=== PATIENT | male | born 1980 | race African-American/Black ===

== ENCOUNTER 2017-01-29 02:25 | Inpatient (IN) | payer OTHER ==
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
[2017-01-29] MEDS ORDERED: CEFAZOLIN 1 GM in DEXTROSE 5%-WATER - 50 ML IVPB ONE (02:36)
[2017-01-29] MEDS ORDERED: DIPHTH,PERTUSS(ACELL),TET 0.5 ML DISP.SYRIN IM ONE (02:36)
[2017-01-29 02:50] LABS: EOSINOPHIL 2.4 % (0-4.5); MCH 31.1 pg (25.7-33.7); MCHC 34.1 g/dl (32.0-35.9); MEAN CELL VOLUME 91.3 fl (80-96); MEAN PLT VOLUME 6.6 fl (7.5-11.1); NEUTROPHILS 51.8 % (42.8-82.8); PLATELET COUNT 317 K/MM3 (134-434); RDW 14.1 % (11.9-15.9); WHITE BLOOD COUNT 8.7 K/mm3 (4.0-10.0)
[2017-01-29 03:05] LABS: INR 0.97 (0.82-1.09); PROTHROMBIN TIME (PATIENT) 10.7 SEC (9.98-11.88)
[2017-01-29] MEDS ORDERED: CEFAZOLIN (PRE-DOCKED) 50 ML IVPB ONE (03:13)
[2017-01-29 03:15] LABS: ALBUMIN 4.2 g/dl (3.4-5.0); ALK PHOS 56 U/L (45-117); ANION GAP 11 (8-16); BILIRUBIN,TOTAL 0.4 mg/dL (0.2-1.0); CO2 27 mmol/L (21-32); CREATININE 1.3 mg/dL (0.7-1.3); GLUCOSE,RANDOM 115 mg/dL (74-106); SGOT/AST 17 U/L (15-37); SGPT/ALT 24 U/L (12-78); TOT PROT 7.9 g/dl (6.4-8.2)
[2017-01-29] MEDS ORDERED: SODIUM CHLORIDE 0.9% 500 ML INFUS.BAG IV ONE (03:29)
[2017-01-29] MEDS ORDERED: LIDOCAINE HCL 2% (20ML MULTI-DOSE VIAL) NR ONE (04:40)
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
[2017-01-29 08:58] VITALS: BMI 28.3
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
[2017-01-29] MEDS ORDERED: ACETAMINOPHEN 325 MG TABLET (FP) PO PRN (09:39)
[2017-01-29] MEDS ORDERED: oxyCODONE HCL 5 MG TABLET PO PRN (09:39)
[2017-01-29 11:23] LABS: MCH 31.5 pg (25.7-33.7); MCHC 34.3 g/dl (32.0-35.9); MEAN CELL VOLUME 91.8 fl (80-96); MEAN PLT VOLUME 6.4 fl (7.5-11.1); PLATELET COUNT 259 K/MM3 (134-434); RDW 13.8 % (11.9-15.9); WHITE BLOOD COUNT 10.5 K/mm3 (4.0-10.0)
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
[2017-01-29] MEDS: CEPHALEXIN MONOHYDRATE 500 MG CAPSULE (UD) PO SCH (18:25)
[2017-01-30] MEDS: CEPHALEXIN MONOHYDRATE 500 MG CAPSULE (UD) PO SCH ×3 (06:06→11:17)
[2017-01-30 09:22] VITALS: BP 143/60; PULSE 54; TEMP 98.1
--- NOTE | 2017-01-30 10:40 | EKG ---
Test Reason : Blood Pressure : / mmHG Vent. Rate : 083 BPM Atrial Rate : 083 BPM P-R Int : 176 ms QRS Dur : 094 ms QT Int : 352 ms P-R-T Axes : 064 089 015 degrees QTc Int : 413 ms NORMAL SINUS RHYTHM NORMAL ECG WHEN COMPARED WITH ECG OF 19-MAR-2013 20:18, RSR' PATTERN IN V1 IS NO LONGER PRESENT T WAVE INVERSION LESS EVIDENT IN INFERIOR LEADS T WAVE INVERSION NO LONGER EVIDENT IN ANTEROLATERAL LEADS Confirmed by RIN DEMPSEY MD ([id number]) on 01/30/2017 10:39:57 AM Referred By: Confirmed By:RIN DEMPSEY MD
== END 2017-01-30 11:21 | disposition home or self-care (01) | DRG 384 ==
LOC: JER 02:25 → JERBED 05:43 → J5S 07:03
PROVIDERS: ADMIT Internal Medicine; ATTEND Internal Medicine
PROC: 0HQJXZZ Repair Left Upper Leg Skin, External Approach (ICD-10-PCS; principal; 2017-01-29)
PROC: 0HQHXZZ Repair Right Upper Leg Skin, External Approach (ICD-10-PCS; 2017-01-29)
DX: S71.112A Laceration without foreign body, left thigh, initial encounter (principal); S71.111A Laceration without foreign body, right thigh, initial encounter; W26.9XXA Contact with unspecified sharp object(s), initial encounter; Y93.9 Activity, unspecified; Y92.9 Unspecified place or not applicable; I10 Essential (primary) hypertension; Z72.0 Tobacco use; F10.129 Alcohol abuse with intoxication, unspecified; Y90.6 Blood alcohol level of 120-199 mg/100 ml
CPT/HCPCS: 36415; 73706-TC-RT; 80053; 80307; 85025; 85027; 85610; 85730; 86850; 86900; 86901; 90715; 93005; 93010; 93971-TC; 97116-GP; 97161-GP; 99285-25

== ENCOUNTER 2017-06-26 13:42 | Emergency (ER) | payer OTHER ==
[2017-06-26 14:05] VITALS: BP 134/79; PULSE 67; TEMP 98.2; BMI 29.6
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
--- NOTE | 2017-06-26 15:36 | PDOC ---
History of Present Illness - General Chief Complaint: Laceration Stated Complaint: LT FINGER LACERATION Time Seen by Provider: 06/26/17 14:07 History Source: Patient Exam Limitations: No Limitations - History of Present Illness Initial Comments: 06/26/17 15:30 CHIEF COMPLAINT: Laceration to the tip of the left first finger HISTORY OF PRESENT ILLNESS: Patient is a 37-year-old male, presents to the ER with 1.0 cm laceration to the tip of the left first finger. Was at work, a sharp object cut the tip of the finger. No active bleeding, tetanus is UTD. Good range of motion to finger, no tendon or ligament involvement. 06/26/17 15:34 Timing/Duration: reports: just prior to arrival Severity: Yes: moderate Past History - Past Medical History Allergies/Adverse Reactions: Allergies Allergy/AdvReac Type Severity Reaction Status Date / Time No Known Allergies Allergy Verified 06/26/17 14:02 Home Medications: Ambulatory Orders No Home Medications 0 dose .ROUTE UTDICT 03/19/13 Aspirin [ASA -] 81 mg PO DAILY 06/26/17 Anemia: No Asthma: No Cancer: Yes (chest pain, sob) Cardiac Disorders: Yes (CARDIAC CATHX2) CVA: No COPD: No CHF: No Dementia: No Diabetes: No GI Disorders: No Disorders: No HTN: Yes (NON COMPLIANT W/HCTZ) Hypercholesterolemia: Yes Liver Disease: No Seizures: No Thyroid Disease: No - Surgical History Abdominal Surgery: No Appendectomy: No Cardiac Surgery: No Cholecystectomy: No Lung Surgery: No Neurologic Surgery: No Orthopedic Surgery: No - Immunization History Immunization Up to Date: No - Suicide/Smoking/Psychosocial Hx Smoking Status: Yes Smoking History: Current every day smoker Have you smoked in the past 12 months: Yes Number of Cigarettes Smoked Daily: 2 Cigars Per Day: 0 Information on smoking cessation initiated: No 'Breaking Loose' booklet given: 03/20/13 Hx Alcohol Use: Yes (social drinker) Drug/Substance Use Hx: Yes Substance Use Type: Marijuana Hx Substance Use Treatment: No Review of Systems - Review of Systems Constitutional: No: Symptoms Reported HEENTM: No: Symptoms Reported Respiratory: No: Symptoms reported Cardiac (ROS): No: Symptoms Reported ABD/GI: No: Symptoms Reported : No: Symptoms Reported Musculoskeletal: No: Joint Pain, Joint Swelling, Joint Stiffness Integumentary: Yes: Other (1 cm laceration to tip of left first finger) Neurological: No: Symptoms reported Hematologic/Lymphatic: No: Symptoms Reported All Other Systems: Reviewed and Negative *Physical Exam - Vital Signs Last Vital Signs Temp Pulse Resp BP Pulse Ox 98.2 F 67 19 134/79 97 06/26/17 14:03 06/26/17 14:03 06/26/17 14:03 06/26/17 14:03 06/26/17 14:03 - Physical Exam General Appearance: Yes: Appropriately Dressed. No: Apparent Distress Respiratory/Chest: positive: Lungs Clear, Normal Breath Sounds Cardiovascular: positive: Regular Rhythm, Regular Rate Procedures - Laceration/Wound Repair Left Finger 1st digit Wound Length: 2.6 to 5.0 cm Wound Explored: clean Wound's Depth, Shape: flap Irrigated w/ Saline: Yes Betadine Prep: Yes Anesthesia: 1% Lidocaine (digital block with good result) Amount of Anesthetic (ccs): 3 Wound Debrided: moderate Wound Repaired With: Sutures Suture Size/Type: 5:0 Number of Sutures: 6 Layer Closure: No Sterile Dressing Applied: Yes (bacitracin and Xeroform) Splint Applied: No Sling Applied: No Medical Decision Making - Medical Decision Making 06/26/17 15:33 A/P: Patient with a 1 cm laceration to tip of left first finger. No active bleeding, flap laceration, there is good range of motion. Patient is up-to-date with his tetanus. See procedure note. Keep area clean dry and intact Keep dressing on until tomorrow If any increased bleeding through the dressing return immediately to emergency department Keep area clean dry and intact bacitracin x3 days, then let it dry out Please return in 10 days for suture removal. I discussed the physical exam findings, ancillary test results and final diagnoses with the patient. I answered all of the patient's questions. The patient was satisfied with the care received and felt comfortable with the discharge plan and treatment plan. The patient will call to arrange follow-up and will return to the Emergency Department with any new, persistant or worsening symptoms. *DC/Admit/Observation/Transfer Diagnosis at time of Disposition: Finger laceration involving tendon Qualifiers: Encounter type: initial encounter Qualified Code(s): S61.219A - Laceration without foreign body of unspecified finger without damage to nail, initial encounter - Discharge Dispostion Disposition: HOME Condition at time of disposition: Good Admit: No - Referrals Referrals: Collins Key MD [Primary Care Provider] - - Patient Instructions Printed Discharge Instructions: DI for Laceration Repair Additional Instructions: Keep area clean dry and intact Keep dressing on until tomorrow If any increased bleeding through the dressing return immediately to emergency department Keep area clean dry and intact bacitracin x3 days, then let it dry out Please return in 10 days for suture removal. Please return immediately to emergency department with any increased redness, swelling, signs of infection - Post Discharge Activity
== END 2017-06-26 15:57 | disposition home or self-care (01) ==
LOC: JERFT 13:42
PROC: 0HQGXZZ Repair Left Hand Skin, External Approach (ICD-10-PCS; principal; 2017-06-26)
DX: S61.012A Laceration without foreign body of left thumb without damage to nail, initial encounter (principal); W26.9XXA Contact with unspecified sharp object(s), initial encounter; Y93.89 Activity, other specified; Y92.9 Unspecified place or not applicable; Y99.0 Civilian activity done for income or pay; Z85.9 Personal history of malignant neoplasm, unspecified; E78.00 Pure hypercholesterolemia, unspecified; I10 Essential (primary) hypertension; F17.210 Nicotine dependence, cigarettes, uncomplicated
CPT/HCPCS: 99281-25

== ENCOUNTER 2024-09-06 10:25 | Emergency (ER) | payer OTHER ==
[2024-09-06 10:31] VITALS: BP 147/88; PULSE 74; RESP 20; TEMP 99; BMI 31.6
[2024-09-06] MEDS ORDERED: IBUPROFEN 600 MG TABLET (FP) PO ONE (11:00)
[2024-09-06] MEDS ORDERED: guaiFENesin/D-METHORPHAN HB 10 ML UNIT-DOSE CUPS ONE (11:00)
[2024-09-06] MEDS: IBUPROFEN 600 MG TABLET (FP) PO ONE (11:02)
[2024-09-06] MEDS: guaiFENesin/D-METHORPHAN HB 10 ML UNIT-DOSE CUPS PO ONE (11:02)
== END 2024-09-06 11:48 | disposition home or self-care (01) ==
LOC: JERFT 10:25
DX: J10.1 Influenza due to other identified influenza virus with other respiratory manifestations (principal); R51.9 Headache, unspecified; R05.9 Cough, unspecified; M79.10 Myalgia, unspecified site; Z20.822 Contact with and (suspected) exposure to COVID-19
CPT/HCPCS: 0241U-QW; 71046-TC-FY; 99284-25